=== PATIENT | male | born 1970 | race Caucasian/White ===

== ENCOUNTER → 2017-08-29 | Outpatient (CLI) | payer BC ==
--- NOTE | 2017-08-29 23:28 | MR ---
EXAMINATION TYPE: MR ankle LT wo con DATE OF EXAM: 08/29/2017 COMPARISON: NONE HISTORY: Lt ankle pain/swelling x 10 mos, no trauma Standard multiplanar, multisequence MRI departmental protocol Multiplanar, multisequence images of the left ankle were acquired. FINDINGS: There are mild Achilles and plantar calcaneal spurs. Achilles tendon is intact. Plantar fas bunny appears intact. Exam is limited due to metal artifact from the distal tibia. Subtalar joint shows some mild osteoarthritis. The collateral ligaments appear intact. The medial and lateral flexor tend ons of the ankle appear intact. There is mild spurring of the anterior malleolus. 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 Calcaneal spurring. No fracture seen. Exam is limited by m etal artifact on the distal tibia. No evidence of ligament or tendon tear.
== END | disposition home or self-care (01) ==
LOC: RADMRIMAIN 15:26
PROVIDERS: ATTEND Orthopaedic Surgery
DX: M19.072 Primary osteoarthritis, left ankle and foot (principal); M77.32 Calcaneal spur, left foot; M76.822 Posterior tibial tendinitis, left leg

== ENCOUNTER → 2020-06-17 | Outpatient (CLI) | payer BC ==
--- NOTE | 2020-06-17 14:37 | US ---
EXAMINATION TYPE: US scrotum with doppler. Grayscale and color Doppler Duplex imaging performed of t he scrotum. DATE OF EXAM: 06/17/2020 COMPARISON: NONE CLINICAL HISTORY: N50.82 Scrotum Pain. Right testicle pain since Tuesday. EXAM MEASUREMENTS: TESTICLES: Right Testicle: 5.0 x 2.4 x 3.6 cm Left Testicle: 4.9 x 2.3 x 2.6 cm EPIDIDYMIS HEAD: Right Epididymis: 1.6 x .8 x 1.0 cm Left Epididymis: 1.0 x .5 x .7 cm Doppler performed to assess for testicular vascularity; good bilateral color flow and waveforms are s een. There is no evidence of testicular torsion. Presence of hydroceles: No Presence of varicoceles: No IMPRESSION: No distinct abnormality is appreciated at this time.
== END | disposition home or self-care (01) ==
LOC: RADUSWWP 11:35
PROVIDERS: ATTEND Family Medicine
DX: N50.82 Scrotal pain (principal)
CPT/HCPCS: 76870; 93975

== ENCOUNTER 2020-10-11 07:38 | Emergency (ER) | payer BC ==
[2020-10-11] MEDS ORDERED: HYDROmorphone 1 MG/ML 1 ML SYRINGE IM STA (08:22)
--- NOTE | 2020-10-11 08:35 | ED ---
Extremity Problem HPI - General Chief complaint: Extremity Problem,Nontraumatic Stated complaint: Sciatic Nerve Pain Time Seen by Provider: 10/11/20 07:45 Source: patient Mode of arrival: wheelchair Limitations: no limitations - History of Present Illness Initial comments: Patient is a 50-year-old previously healthy male who presents to the emergency department with reported right buttock pain which extends into his right leg. Patient reports that the pain started on Thanksgiving. Denies any inciting trauma. States that the pain started in the right buttock and has subsequently started radiating into his right foot. He has numbness and tingling over the right lateral aspect. Denies any saddle anesthesia. No bowel or bladder incontinence or retention. No fevers or chills. Denies history of intravenous drug use. No previous history of cancer. Denies any lower extremity weakness. Has been taking Aleve and Motrin at home without improvement in his symptoms. Patient states his pain is worse when he straightens his leg and feels better when he flexes it. Denies history of low back pain, previous back procedures. Denies any additional symptoms include nausea, vomiting, headaches, neck pain. No other alleviating, precipitating or modifying factors - Related Data Previous Rx's Medication Instructions Recorded Cyclobenzaprine [Flexeril] 10 mg PO TID PRN #15 tab 10/11/20 predniSONE [Deltasone] 20 mg PO BID #10 tab 10/11/20 Allergies Allergy/AdvReac Type Severity Reaction Status Date / Time acetaminophen [From [place]] Allergy Itching Verified 10/11/20 07:39 hydrocodone [From [facility]] Allergy Itching Verified 10/11/20 07:39 Review of Systems ROS Statement: Those systems with pertinent positive or pertinent negative responses have been documented in the HPI. ROS Other: All systems not noted in ROS Statement are negative. Past Medical History Past Medical History: No Reported History History of Any Multi-Drug Resistant Organisms: None Reported Past Surgical History: Appendectomy, Orthopedic Surgery Additional Past Surgical History / Comment(s): left collar bone sx, left tib/fib sx, hernia Smoking Status: Current every day smoker Past Alcohol Use History: Occasional Past Drug Use History: None Reported General Exam Limitations: no limitations Course Vital Signs 10/11/20 10/11/20 07:40 10:20 Temperature 97.1 F L 98.7 F Pulse Rate 70 53 L Respiratory 16 18 Rate Blood Pressure 149/79 126/72 O2 Sat by Pulse 99 96 Oximetry Medical Decision Making - Medical Decision Making Upon arrival patient is placed in room 22. A thorough history and physical exam was performed. Patient was given 1 mg of Dilaudid IM. CT of the patient's lumbar spine was performed which demonstrates multilevel degenerative changes mid to lower lumbar spine. Multiple areas of herniated lumbar disc with suspected encroachment most of which on the right L4 area patient is reevaluated and reports to proven in his pain. He is additionally given a muscle relaxer and a dose of steroids. The treatment options are discussed with the patient which he doesn't like to take a course of steroids. He is instructed not to take any NSAIDs. Prescription for some to the pharmacy. Return parameters were discussed with the patient and his at bedside. If he has any new or worsening symptoms she should be brought back to the emergency room. Patient was then discharged home in stable condition Disposition Clinical Impression: Lumbar radiculopathy, acute, Sciatica, Herniated disc Disposition: HOME SELF-CARE Condition: Stable Instructions (If sedation given, give patient instructions): Lumbar Radiculopathy (ED) Additional Instructions: Please follow-up with the primary care doctor in 2-4 days. I also recommended you follow up with the spinal surgeons in [place]. Return to the emergency room for any new or worsening symptoms. Do not take NSAIDS (motrin, aleve, advil) while taking the steroids. Prescriptions: predniSONE [Deltasone] 20 mg PO BID #10 tab Cyclobenzaprine [Flexeril] 10 mg PO TID PRN #15 tab PRN Reason: Muscle Spasm Is patient prescribed a controlled substance at d/c from ED?: No Referrals: Paco Martines DO [Primary Care Provider] - 1-2 days Alonzo Crews DO [Doctor of Osteopathic Medicine] - 1-2 days Sam Valentine DO [Doctor of Osteopathic Medicine] - 1-2 days Time of Disposition: 09:52
--- NOTE | 2020-10-11 09:20 | CT ---
EXAMINATION TYPE: CT lumbar spine wo con DATE OF EXAM: 10/11/2020 9:13 AM COMPARISON: None. HISTORY: Right sided leg pain and burning sensation CT DLP: 938.6 mGycm Automated exposure control for dose reduction was used. Unenhanced CT of the lumbar spine was performed. Bone and soft tissue window settings are submitted as well as coronal and sagittal reconstructions. There are 5 lumbar-type vertebra identified. Vertebral body heights and disc space heights are mainta ined. Alignment is satisfactory. Spinal canal grossly preserved on sagittal images. Axial images show T12-L1, L1-L2, and L2-L3 levels to appear within normal limits. Axial images at L3-L4 levels show mild to moderate facet arthropathy bilaterally. There is mild broad disc bulge mildly effacing anterior thecal sac. There is mild to moderate left-sided anterior inferi or neural foraminal narrowing due to foraminal disc protrusion component. Some encroachment on the ex iting L3 nerve may be present axial image 54 and sagittal image 42. Right-sided neural foramina is pa tent. Axial images at the L4-L5 level show moderate facet arthropathy bilaterally. Subtle slight spondyloli sthesis. Right paracentral disc protrusion mildly effaces the anterior thecal sac on image 67. There is moderate bilateral neural foraminal narrowing right greater than left with some encroachment on ex iting right L4 nerve difficulty exclude sagittal image 27 and axial image 67. Axial images at L5-S1 level show tiny central disc protrusion with spinal canal is preserved. Patent bilateral neural foramina. Mild facet arthropathy bilaterally. Moderate calcified plaque of the aorta extends into branch vessels. IMPRESSION: Multilevel degenerative changes mid to lower lumbar spine as detailed above. Spondylolist hesis and degenerative change L4-L5 level with suspected encroachment on exiting right L4 nerve. None mergent MRI follow-up can be performed to further evaluate.
[2020-10-11] MEDS ORDERED: CYCLOBENZAPRINE 10 MG TAB PO STA (09:47)
[2020-10-11] MEDS ORDERED: predniSONE 20 MG TAB PO STA (09:47)
[2020-10-11 10:22] VITALS: BP 126/72; PULSE 53; RESP 18; TEMP 98.7
== END 2020-10-11 10:20 | disposition home or self-care (01) ==
LOC: EC 07:38
DX: M54.16 Radiculopathy, lumbar region (principal); M54.31 Sciatica, right side; M51.26 Other intervertebral disc displacement, lumbar region
CPT/HCPCS: 72131; 99283; 96372; J1170; J7512

== ENCOUNTER → 2023-02-16 | Outpatient (CLI) | payer BC ==
[2023-02-16 16:30] LABS: Basophils # (A) 0.06 X 10*3/uL (0.00-0.10); Basophils % (A) 0.6 %; Eosinophils # (A) 0.57 X 10*3/uL (0.04-0.35); Eosinophils % (A) 5.4 %; HCT 48.4 % (39.6-50.0); HGB 16.3 g/dL (13.0-17.0); Immature Grans, Automated 0.4 %; Lymphocytes # (A) 3.01 X 10*3/uL (0.90-5.00); Lymphocytes % (A) 28.4 %; MCH 29.9 pg (27.0-32.0); MCHC 33.7 g/dL (32.0-37.0); MCV 88.6 fL (80.0-97.0); Mean Platelet Volume 10.8 fL (9.5-12.2); Monocytes # (A) 0.84 X 10*3/uL (0.20-1.00); Monocytes % (A) 7.9 %; NRBC Per 100 WBC 0 /100 WBCS (0.0-0.0); Neutrophils # (A) 6.08 X 10*3/uL (1.80-7.70); Neutrophils % (A) 57.3 %; Platelet Count 343 X 10*3/uL (140-440); RBC 5.46 X 10*6/uL (4.40-5.60)
[2023-02-16 16:57] LABS: African American GFR (CKD) 103.2 (60.0-200.0); Albumin 4.8 g/dL (3.8-4.9); Albumin/Globulin Ratio 1.98 (1.60-3.17); Anion Gap 11.6 mmol/L (10.00-18.00); BUN/Creat Ratio 17.47 Ratio (12.00-20.00); Blood Urea Nitrogen 17.1 mg/dL (9.0-27.0); Carbon Dioxide 24.8 mmol/L (20.0-27.5); Globulin 2.4 g/dL (1.6-3.3); Potassium 4.5 mmol/L (3.5-5.5); Prostate Specific Antigen 0.3 ng/mL (0.00-3.50); T4, Free (Free Thyroxine) 1.24 ng/dL (0.800-1.800); Total Bilirubin 0.4 mg/dL (0.30-1.20); Total Protein 7.2 g/dL (6.2-8.2)
== END | disposition home or self-care (01) ==
LOC: LABWHC1 10:06
PROVIDERS: ATTEND Family Medicine
DX: Z12.5 Encounter for screening for malignant neoplasm of prostate (principal); R14.0 Abdominal distension (gaseous)
CPT/HCPCS: 36415; 80053; 82150; 83690; 84153; 84439; 84443; 85025

== ENCOUNTER → 2023-03-30 | Outpatient (CLI) | payer BC ==
--- NOTE | 2023-03-30 09:22 | CT ---
EXAMINATION TYPE: CT abdomen w con CT DLP: 729.8 mGycm, Automated exposure control for dose reduction was used. DATE OF EXAM: 03/30/2023 9:11 AM COMPARISON: None CLINICAL INDICATION:Male, 52 years old with history of R10.13; epigastric pain hx of inguinal hernia TECHNIQUE: Standard CT of the abdomen following the administration of 100 cc of Isovue 300 IV contr ast material and oral contrast. Coronal and sagittal reformats were performed. FINDINGS: LOWER CHEST: Unremarkable ABDOMEN LIVER: Diffusely hypoattenuating parenchyma. GALLBLADDER AND BILE DUCTS: Unremarkable. PANCREAS: Unremarkable. SPLEEN: Unremarkable. ADRENAL GLANDS: Unremarkable. KIDNEYS AND URETERS: No evidence of hydronephrosis or renal calculus. The kidneys enhance symmetrical ly. Subcentimeter hypodense focus within the left mid kidney which is too small characterize but like ly represents a cyst. Contrast is demonstrated within both collecting systems on the delayed phase. STOMACH AND BOWEL: Stomach is unremarkable. Periampullary duodenal diverticulum identified. Enteric c ontrast reaches the mid small bowel. No focal bowel wall thickening or surrounding inflammatory dumas es. No evidence of bowel obstruction. PERITONEUM: No evidence of pneumoperitoneum or free fluid. VASCULATURE: Moderate atherosclerotic calcifications are present throughout the abdominal aorta and i ts branches. No evidence of aortic aneurysm. MUSCULOSKELETAL: No acute osseous abnormalities LYMPH NODES: No gross evidence for lymphadenopathy. SOFT TISSUE/ABDOMINAL WALL: Unremarkable IMPRESSION: 1. No acute abdominal process. 2. Hepatic steatosis. 3. Small periampullary duodenal diverticulum.
== END | disposition home or self-care (01) ==
LOC: RADCTMAIN 08:18
PROVIDERS: ATTEND Family Medicine
DX: K76.0 Fatty (change of) liver, not elsewhere classified (principal); K57.10 Diverticulosis of small intestine without perforation or abscess without bleeding
CPT/HCPCS: 74160; Q9967

== ENCOUNTER → 2023-04-13 | Outpatient (CLI) | payer BC ==
--- NOTE | 2023-04-13 10:56 | CA ---
Exercise Stress Test Report Name: Moy Clay Exam Date: 04/13/2023 09:33 Exam Location: [facility] Stress Ht (in): 70 Wt (lb): 200 BSA: 2.09 Ordering Phys: Paco Martines DO Referring Phys: Paco Martines DO Technologist: Jose Portillo Age: 52 Gender: M : 1970 Procedure CPT: Indications: R94.31 ICD-10 Codes: Patient History: Chest pain Medications: Meds past 24 hrs: Pretest Chest Pain: STRESS TEST Ralph Protocol Exercise Duration (min:sec): 09:[address] Depressions (mm): Angina Score: Sarabia Score: Resting HR (bpm): 51 Peak HR (bpm): 131 Resting BP (mmHg): 122 / 75 Peak BP (mmHg): 209 / 84 MPHR: 169 Target HR: 144 % MPHR: 78 METS: 11.8 Total Dose: Peak Dose: Atropine: Double Product: 95052 BP Response: Stress Termination: Back pain and unable to continue Stress Symptoms: Some epigastric pain #2 at end of test and in recovery. Stress Summary: ECG ANALYSIS Resting ECG: Normal sinus rhythm normal axis normal intervals Stress ECG: Patient exercised on Ralph protocol for 9 minutes achieving 10 mets 85% of predicted maximal heart rate. At peak exercise patient had some epigastric discomfort without significant ST segment depression. In recovery there was half a millimeter upsloping ST segment depression noted CONCLUSIONS Good exercise tolerance Negative stress test by EKG criteria Dr. Connor Reddy MD (Electronically Signed) Final Date: 13 Apr 2023 10:56
== END | disposition home or self-care (01) ==
LOC: RADNMMAIN 09:04
PROVIDERS: ATTEND Family Medicine
DX: R07.9 Chest pain, unspecified (principal); R94.31 Abnormal electrocardiogram [ECG] [EKG]
CPT/HCPCS: 93017

== ENCOUNTER 2023-04-27 08:17 | Day surgery (SDC) | payer BC ==
[~2023-04-27 08:17] MED LIST: LACTATED RINGERS 1,000 ML IV SCH; LIDOCAINE 1% (10MG/ML) FOR IV START INTRADERMA PRN
[2023-04-27 08:43] VITALS: TEMP 97.4
[2023-04-27] MEDS ORDERED: PROPOFOL 10 MG/ML 20 ML VIAL IV ONE (09:00)
[2023-04-27] MEDS ORDERED: LIDOCAINE 2% INJ 20 MG/ML (2 ML VIAL) ONE (09:00)
--- NOTE | 2023-04-27 09:12 | P.GSHP ---
History of Present Illness H&P Date: 04/27/23 CHIEF COMPLAINT: GERD and colon screen HISTORY OF PRESENT ILLNESS: The patient is a 52-year-old male who presents with gastroesophageal reflux disease and need for colon screen. Upper and lower endoscopy were offered for further evaluation and management. PAST MEDICAL HISTORY: Please see list. PAST SURGICAL HISTORY: Please see list. MEDICATIONS: Please see list. ALLERGIES: Please see list. SOCIAL HISTORY: No illicit drug use FAMILY HISTORY: No reports of Crohn disease or ulcerative colitis. REVIEW OF ORGAN SYSTEMS: CONSTITUTIONAL: No reports of fevers or chills. GI: Denies any blood in stools or constipation. PHYSICAL EXAM: VITAL SIGNS: Stable GENERAL: Well-developed pleasant in no acute distress. HEENT: No scleral icterus. Extraocular movements grossly intact. Moist buccal mucosa. NECK: Supple without lymphadenopathy. CHEST: Unlabored respirations. Equal bilateral excursions. CARDIOVASCULAR: Regular rate and rhythm. Distal 2+ pulses. ABDOMEN: Soft, nondistended. MUSCULOSKELETAL: No clubbing, cyanosis, or edema. ASSESSMENT: 1. Gastroesophageal reflux disease 2. Colon screen. PLAN: 1. Recommend proceeding with an upper and lower endoscopy Past Medical History Past Medical History: No Reported History History of Any Multi-Drug Resistant Organisms: None Reported Past Surgical History: Appendectomy, Orthopedic Surgery Additional Past Surgical History / Comment(s): left collar bone sx, left tib/fib sx, hernia, lft arm Past Anesthesia/Blood Transfusion Reactions: No Reported Reaction Additional Past Anesthesia/Blood Transfusion Reaction / Comment(s): slow to wake Smoking Status: Current every day smoker Medications and Allergies Home Medications Medication Instructions Recorded Confirmed Type Fenofibrate 160 mg PO DAILY 04/22/23 04/27/23 History Pantoprazole Sodium 40 mg PO DAILY 04/22/23 04/27/23 History Allergies Allergy/AdvReac Type Severity Reaction Status Date / Time acetaminophen [From [place]] Allergy Itching Verified 04/27/23 08:47 hydrocodone [From [place]] Allergy Itching Verified 04/27/23 08:47 Surgical - Exam Vital Signs Temp Pulse Resp BP Pulse Ox 97.4 F L 61 16 143/81 97 04/27/23 08:42 04/27/23 08:42 04/27/23 08:42 04/27/23 08:42 04/27/23 08:42
--- NOTE | 2023-04-27 09:13 | P.PCN ---
Date of Procedure: 04/27/23 Description of Procedure: PREOPERATIVE DIAGNOSIS: Gastroesophageal reflux disease. POSTOPERATIVE DIAGNOSIS: Gastroesophageal reflux disease with erosive esophagitis Gastritis. Diaphragmatic hiatal hernia OPERATION: Esophagogastroduodenoscopy with biopsies along antrum and duodenum SURGEON: Annalise Soria MD ANESTHESIA: MAC. INDICATIONS: The patient is a 52-year-old male who presents with reflux disease. Benefits and risks of the procedure were described. Informed consent was obtained. DESCRIPTION: The patient was brought into the endoscopy suite and laid in the left lateral decubitus position. An Olympus gastroscope was passed along the posterior oropharynx down to the distal esophagus where the squamocolumnar junction was encountered at 39 cm from the incisors. The stomach was entered and no bile reflux was found. Additional findings are listed below. Biopsies with cold forceps were obtained of the antrum. The first through third portion of the duodenum was examined. Retroflexion of the scope confirmed Hill grade 3 lower esophageal valve. The squamocolumnar junction demonstrated LA grade B erosive esophagitis. The stomach was desufflated. The patient tolerated the procedure well. FINDINGS: Squamocolumnar junction 39 cm from the incisors. Diaphragmatic hiatus at 41 cm. Hiatal hernia, 2 cm Hill grade 3 lower esophageal valve. LA grade B erosive esophagitis. Biopsies obtained of duodenum Chronic gastritis RECOMMENDATIONS: Upper endoscopy as needed.
[2023-04-27] MEDS ORDERED: LACTATED RINGERS 900 ML IV ONE (09:25)
[2023-04-27] MEDS ORDERED: LACTATED RINGERS 1,000 ML IV ONE (09:25)
--- NOTE | 2023-04-27 09:28 | P.PCN ---
Date of Procedure: 04/27/23 Description of Procedure: PREOPERATIVE DIAGNOSIS: Colonoscopy screening POSTOPERATIVE DIAGNOSIS: Hyperplastic polyps, sigmoid colon OPERATION: Colonoscopy to the ileocecal valve and appendiceal orifice, cecum Colonoscopy with cold forceps biopsy SURGEON: Annalise Soria MD. ANESTHESIA: MAC. INDICATIONS: The patient is an 52-year-old male who presents for colonoscopy screening. Benefits and risks were described and informed consent was obtained. DESCRIPTION OF PROCEDURE: The patient had undergone Sutab prep. The patient had been brought into the operating room and laid in the left lateral decubitus position. After adequate intravenous sedation, the rectum was examined with 2% lidocaine jelly. The prostate was unremarkable. External hemorrhoids were encountered. The rectal tone was within normal limits. No lesions were palpated in the rectal vault. An Olympus colonoscope was advanced until the cecum, ileocecal valve and appendiceal orifice were clearly viewed. The prep was excellent. No sigmoid diverticulosis was encountered. Colonic polyps were found and removed. No evidence of focal colitis was found. Retroflexion of the scope demonstrated grade 2 internal hemorrhoids without active bleeding or inflammation. The colon was desufflated. The patient had tolerated the procedure well. Withdrawal time was over 6 minutes. FINDINGS: Aronchick preparation quality scale 1 (1-5) Internal hemorrhoids, grade 2 External hemorrhoids, grade 2. No arteriovenous malformations. No sigmoid diverticulosis Removal of 2 polyps: - Cold forceps biopsy at 20 cm from the anal verge, 3 to 4 mm polyp, sigmoid colon No focal colitis. RECOMMENDATIONS: Repeat colonoscopy years2027 Plan - Discharge Summary Discharge Rx Participant: No New Discharge Prescriptions: Continue Pantoprazole Sodium 40 mg PO DAILY Fenofibrate 160 mg PO DAILY Discharge Medication List Fenofibrate 160 mg PO DAILY 04/22/23 [History] Pantoprazole Sodium 40 mg PO DAILY 04/22/23 [History] Follow up Appointment(s)/Referral(s): Annalise Soria MD [STAFF PHYSICIAN] - As Needed Patient Instructions/Handouts: Colorectal Polyps (GEN) Activity/Diet/Wound Care/Special Instructions: Repeat colonoscopy in 5 years2027 Discharge Disposition: HOME SELF-CARE
[2023-04-27 09:29] VITALS: RESP 12
[2023-04-27 09:54] VITALS: BP 132/77; PULSE 58
== END 2023-04-27 10:10 | disposition home or self-care (01) ==
LOC: ORWHC2ENDO 08:17
PROVIDERS: ATTEND Surgery Plastic and Reconstructive Surgery
DX: Z12.11 Encounter for screening for malignant neoplasm of colon (principal); K63.5 Polyp of colon; K64.4 Residual hemorrhoidal skin tags; K64.1 Second degree hemorrhoids; K29.50 Unspecified chronic gastritis without bleeding; K21.00 Gastro-esophageal reflux disease with esophagitis, without bleeding; K44.9 Diaphragmatic hernia without obstruction or gangrene; Z90.49 Acquired absence of other specified parts of digestive tract; F17.210 Nicotine dependence, cigarettes, uncomplicated; Z79.899 Other long term (current) drug therapy; Z88.5 Allergy status to narcotic agent
CPT/HCPCS: 88305; 45380; 43239; J2704; J2001

== ENCOUNTER → 2024-09-06 | Outpatient (CLI) | payer BC ==
--- NOTE | 2024-09-06 15:37 | XR ---
EXAMINATION TYPE: XR lumbar spine 3V DATE OF EXAM: 09/06/2024 Comparison: None Clinical History: 54-year-old male low back pain, M51.26 Findings: 5 lumbar type vertebral bodies. Mild degenerative disc disease mid and lower lumbar spine with disc s pace narrowing. Mild facet arthropathy lower lumbar spine. Atherosclerotic calcifications throughout the abdominal aorta. Vertebral body heights are preserved and alignment is maintained. Impression: 1. Mild degenerative disc disease mid to lower lumbar spine along with mild to moderate facet arthrop athy. 2. No vertebral compression collapse or malalignment. [facility], , 09/06/2024 3:34 PM
== END | disposition home or self-care (01) ==
LOC: RADXRMAIN 15:06
PROVIDERS: ATTEND Nurse Practitioner Family
CPT/HCPCS: 72100